=== PATIENT | female | born 1955 | race Asian ===

== ENCOUNTER 2017-06-10 14:57 | Emergency (ER) | payer OTHER ==
[~2017-06-10] VITALS: Ht 147.3 cm; Wt 58.0 kg
[2017-06-10 15:03] VITALS: Ht 147.3 cm; Wt 58.0 kg
--- NOTE | 2017-06-10 16:14 | RADRPT ---
PROCEDURE: CT Brain without contrast. CLINICAL INDICATION: Trauma TECHNIQUE: A CT of the brain was performed on a multidetector CT scanner utilizing axial imaging f rom the skull base through the vertex without IV contrast. Multiplanar reformatted images were made . Images were reviewed on a PACS workstation. The CTDIvol is 44 mGy and the DLP is over 720 mGycm. DICOM images are available. One or more of the following dose reduction techniques were utilized: 1.) Automated exposure control 2.) Adjustment of the mA +/- kV according to patient's size 3.) Use of iterative reconstruction technique. COMPARISON: None FINDINGS: There is no intracranial hemorrhage, mass effect, or midline shift. No extra-axial fluid collection is seen. The ventricles and sulci are normal in size and configuration. The density of the brain is normal, and the lance white matter differentiation appears well-preserved. The visualized osseous s tructures are grossly unremarkable. Us there is opacification of the ethmoid and frontal sinuses. IMPRESSION: 1. No evidence of acute intracranial pathology. 2. No intracranial hemorrhage or skull fracture. 3. Sinusitis. .Maurice Robin MD, Date Time Electronically viewed and signed by .Maurice Robin MD, on 06/10/2017 16:14 .A/
--- NOTE | 2017-06-10 16:17 | RADRPT ---
PROCEDURE: CT facial bones CLINICAL INDICATION: Trauma TECHNIQUE: CT of the facial bones was performed on a multidetector CT scanner utilizing high-reso lution axial images. Sagittal, coronal, and multiplanar reformatted images were made. Additionally , 3-D reformatted images were made. The CTDIvol is 29 mGy and the DLP is 536 mGy-cm. Individualized dose optimization technique was used for the performance of this exam. This included 1. Automated exposure control. 2. Adjustment of the mA and/or kV according to the patient's size. 3. Use of iterative reconstruction technique. COMPARISON: None FINDINGS: No facial fracture is present. The pterygoids are intact. Temporomandibular joints are intact with anatomic alignment. There is right premaxillary and pre septal periorbital soft tissue swelling wit h a focal 15 mm hematoma superficial to the inferior lateral maxillary sinus. The globes are intact and there is no retrobulbar are or extra coronal hemorrhage. Noted is complete opacification of the left maxillary sinus with near complete opacification of the right maxillary sinus. There is complet e opacification of the frontal sinuses and the ethmoid air cells. The ostiomeatal complexes are occl uded. IMPRESSION: No facial fracture. Right premaxillary and pre septal periorbital soft tissue swelling with small focal hematoma. Extensive sinusitis. .Maurice Robin MD, MD Date Time Electronically viewed and signed by .Maurice Robin MD, MD on 06/10/2017 16:17 .A/
[2017-06-10] MEDS ORDERED: GLIP-95 PO (17:22)
[2017-06-10] MEDS ORDERED: AMLO-147 PO (17:23)
[2017-06-10] MEDS ORDERED: LOSA50TA6 PO (17:23)
[2017-06-10] MEDS ORDERED: MTF1000T PO (17:23)
[2017-06-10] MEDS ORDERED: CLOP75TA27 PO (17:24)
--- NOTE | 2017-06-10 18:28 | ERD ---
ER Documentation Chief Complaint Chief Complaint pt bib family with c/o trip and fall, right face pain,swell +blood thinners HPI This is a 62-year-old female who is walking and she accidentally tripped and fell because there is a stone that was hidden underneath some leaves. She fell to her right face and hit her head. She is complaining of some right cheek pain no loss of consciousness no neck pain no numbness or weakness of pain in the back pelvis chest or extremities. There is some soft tissue swelling underneath her right cheek with an abrasion. She says she takes Plavix but does not take Coumadin. No headache as mentioned no focal neurological complaints ROS All systems reviewed and are negative except as per history of present illness. Medications Home Meds Reported Medications Clopidogrel Bisulfate (Clopidogrel) 75 Mg Tablet, 75 MG PO DAILY, #30 TAB 06/10/17 Metformin* (Glucophage*) 1,000 Mg Tablet, 1000 MG PO BID, #60 TAB 06/10/17 Losartan Potassium* (Losartan Potassium*) 50 Mg Tablet, 50 MG PO DAILY, TAB 06/10/17 Amlodipine Besylate* (Amlodipine Besylate*) 10 Mg Tablet, 10 MG PO DAILY, #30 TAB 06/10/17 Glipizide* (Glipizide*) 10 Mg Tablet, 10 MG PO DAILY, TAB 06/10/17 Allergies Allergies: Coded Allergies: No Known Allergy (Unverified , 06/10/17) PMhx/Soc Hx Neurological Disorder: Yes (HX OF CVA X 2) Hx Alcohol Use: No Hx Substance Use: No Hx Tobacco Use: No Smoking Status: Never smoker FmHx Family History: No coronary disease Physical Exam Vitals Vital Signs Date Time Temp Pulse Resp B/P Pulse Ox O2 Delivery O2 Flow Rate FiO2 06/10/17 15:03 98.3 90 16 176/79 99 Physical Exam Co Const: Well-developed, well-nourished Head: Atraumatic, normocephalic Eyes: Normal Conjunctiva, PERRLA, EOMI, normal sclera, no nystagmus ENT: Normal External Ears, Nose and Mouth, moist mucus membranes, there is soft tissue swelling underneath the right eye over the maxillary sinus area there is no laceration there is a small abrasion the lateral aspect no zygomatic instability no facial instability. Neck: Full range of motion. No meningismus, no lymphadenopathy. Resp: Clear to auscultation bilaterally, no wheezing, rhonchi, rales Cardio: Regular rate and rhythm, no murmurs, S1 S2 present Abd: Soft, non tender x 4, non distended. Normal bowel sounds, no guarding or rebound, no pulsitile abdominal masses or bruits Skin: No petechiae or rashes, no ecchymosis , no maculopapular rash Back: No midline or flank tenderness Ext: No cyanosis, or edema, FROM x 4, normal inspection, neurovascularly intact x 4 Neur: Awake and alert, STR 5/5 x 4, sensation intact x 4, no focal findings, cerebellum intact Psych: Normal Mood and Affect Procedures/MDM PROCEDURE: CT Brain without contrast. CLINICAL INDICATION: Trauma TECHNIQUE: A CT of the brain was performed on a multidetector CT scanner utilizing axial imaging from the skull base through the vertex without IV contrast. Multiplanar reformatted images were made. Images were reviewed on a PACS workstation. The CTDIvol is 44 mGy and the DLP is over 720 mGycm. DICOM images are available. One or more of the following dose reduction techniques were utilized: 1.) Automated exposure control 2.) Adjustment of the mA +/- kV according to patient's size 3.) Use of iterative reconstruction technique. COMPARISON: None FINDINGS: There is no intracranial hemorrhage, mass effect, or midline shift. No extra- axial fluid collection is seen. The ventricles and sulci are normal in size and configuration. The density of the brain is normal, and the lance white matter differentiation appears well-preserved. The visualized osseous structures are grossly unremarkable. Us there is opacification of the ethmoid and frontal sinuses. IMPRESSION: 1. No evidence of acute intracranial pathology. 2. No intracranial hemorrhage or skull fracture. 3. Sinusitis. .Maurice Robin MD, Date Time Electronically viewed and signed by .Maurice Robin MD, on 06/10/2017 16: 14 .A/ CC: NAHEED FRY DO PROCEDURE: CT facial bones CLINICAL INDICATION: Trauma TECHNIQUE: CT of the facial bones was performed on a multidetector CT scanner utilizing high-resolution axial images. Sagittal, coronal, and multiplanar reformatted images were made. Additionally, 3-D reformatted images were made. The CTDIvol is 29 mGy and the DLP is 536 mGy-cm. Individualized dose optimization technique was used for the performance of this exam. This included 1. Automated exposure control. 2. Adjustment of the mA and/or kV according to the patient's size. 3. Use of iterative reconstruction technique. COMPARISON: None FINDINGS: No facial fracture is present. The pterygoids are intact. Temporomandibular joints are intact with anatomic alignment. There is right premaxillary and pre septal periorbital soft tissue swelling with a focal 15 mm hematoma superficial to the inferior lateral maxillary sinus. The globes are intact and there is no retrobulbar are or extra coronal hemorrhage. Noted is complete opacification of the left maxillary sinus with near complete opacification of the right maxillary sinus. There is complete opacification of the frontal sinuses and the ethmoid air cells. The ostiomeatal complexes are occluded. IMPRESSION: No facial fracture. Right premaxillary and pre septal periorbital soft tissue swelling with small focal hematoma. Extensive sinusitis. .Maurice Robin MD, Date Time Electronically viewed and signed by .Maurice Robin MD, on 06/10/2017 16: 17 .A/ CC: NAHEED FRY DO Patient was given head precautions and will follow up with primary Departure Diagnosis: Primary Impression: Head injury Encounter type: initial encounter Qualified Code: S09.90XA - Injury of head , initial encounter Additional Impression: Facial contusion Encounter type: initial encounter Qualified Code: S00.83XA - Contusion of face, initial encounter Condition: Stable NAHEED FRY DO Jun 10, 2017 18:28
[2017-06-10] MEDS ORDERED: TRAM50TA2 PO (18:30)
[2017-06-10 18:37] VITALS: BP 160/64; PULSE 66; RESP 18; TEMP 98.2
== END 2017-06-10 18:37 | disposition home or self-care (01) ==
LOC: E/R 14:57
DX: S00.83XA Contusion of other part of head, initial encounter (principal); R51 Headache; W01.0XXA Fall on same level from slipping, tripping and stumbling without subsequent striking against object, initial encounter; Y92.9 Unspecified place or not applicable; Z79.01 Long term (current) use of anticoagulants; Z79.84 Long term (current) use of oral hypoglycemic drugs
CPT/HCPCS: 70450; 70486; Z7502